=== PATIENT | female | born 1980 | race Caucasian/White ===

== ENCOUNTER 2019-05-07 07:23 | Emergency (ER) | payer OTHER ==
[~2019-05-07] VITALS: Ht 167.7 cm; Wt 134.5 kg
[~2019-05-07 07:23] MED LIST: ALBU17AE23 IH; BENZ200C25 PO; CPR500T PO; CYCL10TA9 PO; CYCL5TAB PO; DOXY100C2 PO; HYDR1CAP2 PO; HYDR1TAB8 OP; IBP800T PO; NAPR-243 PO; ONDAN4ODT PO; RT-COMBINH IH; SULF1TAB35 PO; TMSL.4C PO; TRM50T PO
--- NOTE | 2019-05-07 08:05 | ED Integumentary General ---
General Chief Complaint: Skin/Wound Problems Stated Complaint: SPILT HOT LIQUID ON CHEST Nursing Triage Note: Pt reports spilling 400 degree water down front and on L arm at work. Pt reports more pain in chest and that chest feels "on fire." Source: patient Exam Limitations: no limitations (ROSARIO NEAL MED STUDENT) History of Present Illness Date Seen by Provider: May 07, 2019 Time Seen by Provider: 07:46 Initial Comments Pt presents to ED with CC of burn. 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 She complains of 7/10 burning pain in her L arm, just proximal to the hand, and L side of her chest. Thinks the burn on her chest has already blistered and popped but is not certain. Timing/Duration: just prior to arrival Severity: moderate Location: torso, extremities (L arm ) Possible Cause: other (hot liquid ) Associated Symptoms: blisters (ROSARIO NEAL MED STUDENT) Allergies and Home Medications Allergies Coded Allergies: No Known Drug Allergies (Unverified , 05/07/19) Patient Home Medication List Home Medication List Reviewed: Yes (ROSARIO NEAL MED STUDENT) Home Medication List Reviewed: Yes (NACHO RAMOS MD) Review of Systems Review of Systems Constitutional: No diaphoresis, No fever Respiratory: No cough, No short of breath Cardiovascular: No chest pain, No palpitations Gastrointestinal: No abdominal pain, No nausea Skin: see HPI, change in color, lesions (ROSARIO NEAL MED STUDENT) Respiratory: no symptoms reported Cardiovascular: no symptoms reported Skin: see HPI, change in color, lesions (NACOH RAMOS MD) Past Uqblryh-Bvikro-Npsjux Hx Past Med/Social Hx: Reviewed Nursing Past Med/Soc Hx (NACHO RAMOS MD) Patient Social History Recent Foreign Travel: No Contact w/Someone Who Travel: No Recent Infectious Disease Expo: No (ROSARIO NEAL MED STUDENT) Family Medical History Reviewed Nursing Family Hx (NACHO RAMOS MD) Physical Exam Vital Signs Vital Signs - First Documented 05/07/19 07:50 Temp 36.8 Pulse 80 Resp 14 B/P (MAP) 134/57 (82) Pulse Ox 95 O2 Delivery Room Air (NACHO RAMOS MD) Vital Signs Capillary Refill : Less Than 3 Seconds (ROSARIO NEAL,MED STUDENT) General Appearance: WD/WN, no apparent distress Cardiovascular: regular rate, rhythm, no edema, no gallop, no murmur Respiratory: chest non-tender, lungs clear, normal breath sounds, no respiratory distress, no accessory muscle use Skin: normal color, warm/dry Skin Problem Character: blanching, erythema, tenderness, warm, other (3cm of blanching erythema on flexor surface of l arm, just proximal to hand. 6cm linear erythematous burn with surrounding 1cm margin of pallor on superior aspect of L breast , quarter sized erythematous superficial burn on L anterior chest wall ) (ROSARIO NEAL,MED STUDENT) General Appearance: WD/WN, no apparent distress Cardiovascular: regular rate, rhythm, no murmur Respiratory: lungs clear, normal breath sounds Neurologic/Psychiatric: alert, oriented x 3 Skin: warm/dry Skin Problem Character: other (3cm of blanching erythema on flexor surface of l arm, just proximal to hand. 1x6cm linear erythematous burn with surrounding 1cm margin of pallor on superior aspect of L breast , quarter sized erythematous superficial burn on L anterior chest wall ) (NACHO RAMOS MD) Progress/Results/Core Measures Results/Orders My Orders Orders - NACHO RAMOS MD Hydrocodone/Apap 7.5/325 Tab (Lortab 7. (05/07/19 08:07) Ketorolac Injection (Toradol Injection) (05/07/19 08:07) Bacitracin Ointment (Bacitracin Ointment (05/07/19 09:00) (NACHO RAMOS MD) Vital Signs/I&O 05/07/19 07:50 Temp 36.8 Pulse 80 Resp 14 B/P (MAP) 134/57 (82) Pulse Ox 95 O2 Delivery Room Air (NACHO RAMOS MD) Blood Pressure Mean: 82 Progress Progress Note : Time: 08:12 Progress Note Seen and evaluated. Covering smaller ocampo on arm and anterior chest wall with dry bandage, will provide pt with bandages she can change at home and instructions for application. Applying bacitracin to burn on L breast covered with dry dressing. Instructed pt to return if any ocampo show signs of infection including increasing erythema, induration, heat or if ocampo do not get better in a few days. Will cover pain with 7.5mg hydrocodone and 30mg toradol injection today with instructions to take tylenol and ibuprofen as needed. (ROSARIO NEAL MED STUDENT) Progress Note : Progress Note I have seen and evaluated the patient and agree with above except as indicated. Have directed the plan of care. Patient is here with complaints of small burn to the left arm and left upper chest. These are both superficial although there is question of blistering on the breast. We will apply bacitracin to the wound on the breast. She did receive pain control with Toradol 60 mg IM and hydrocodone 7.5/325 one tab by mouth. Overall doing better. Discharged home with return precautions. Patient verbalize understanding instructions and agreement with plan. (NACHO RAMOS MD) Departure Impression Primary Impression: Partial thickness burn of breast Qualified Codes: T21.21XA - Burn of second degree of chest wall, initial encounter Additional Impression: Partial thickness burn of forehead Qualified Codes: T20.26XA - Burn of second degree of forehead and cheek, initial encounter Disposition: 01 HOME, SELF-CARE Condition: Stable Departure-Patient Inst. Decision time for Depature: 08:34 (NACHO RAMOS MD) Referrals: EDILIA LUNA DO (PCP) Primary Care Physician Patient Instructions: Skin Ocampo (DC) Add. Discharge Instructions: All discharge instructions reviewed with patient and/or family. Voiced understanding. Use bacitracin ointment over wound on breast once or twice daily and then cover with dressing for the next several days and then as needed. You may use dry dressing over the superficial burn on the left wrist as needed. Follow-up with your DrKirstin in a few days for recheck. Return for worse pain, swelling, increasing redness, foul-smelling drainage or other concerns as needed. You may take ibuprofen 600 mg every 8 hours as needed for pain. You may also take Tylenol/acetaminophen 1000 mg every 8 hours as needed for pain. Work/School Note: Work Release Form Date Seen in the Emergency Department: May 07, 2019 Return to Work: May 08, 2019 Restrictions: No Restrictions ROSARIO NEAL MED STUDENT May 07, 2019 08:05 NACHO RAMSO MD May 07, 2019 08:33
[2019-05-07] MEDS ORDERED: KETOROLAC 60 MG/2 ML VIAL IM STA (08:07)
[2019-05-07] MEDS ORDERED: HYDROcodone/APAP 7.5 MG/325 MG (LORTAB, LORCET PLUS) TABLET PO STA (08:07)
[2019-05-07 08:38] VITALS: BP 134/57
[2019-05-07] MEDS ORDERED: BACITRACIN OINTMENT 28 GM TUBE TOP SCH (09:00)
[2019-05-08] MEDS ORDERED: MELO15TA14 PO (11:04)
[2019-05-08] MEDS ORDERED: SILV20CR14 TP (11:04)
== END 2019-05-07 08:38 | disposition home or self-care (01) ==
LOC: EDUNIT# 07:23 → ER 07:25 → MERGE 07:25 → ER 08:38
DX: T21.11XA Burn of first degree of chest wall, initial encounter (principal); T22.132A Burn of first degree of left upper arm, initial encounter; T20.16XA Burn of first degree of forehead and cheek, initial encounter; T31.0 Burns involving less than 10% of body surface; X12.XXXA Contact with other hot fluids, initial encounter; Y92.59 Other trade areas as the place of occurrence of the external cause
CPT/HCPCS: 96372; 99284

== ENCOUNTER 2019-05-08 10:24 | Emergency (ER) | payer OTHER ==
[~2019-05-08] VITALS: Ht 167 cm; Wt 127.0 kg
[2019-05-08] MEDS ORDERED: SILV20CR14 TP (11:04)
[2019-05-08] MEDS ORDERED: MELO15TA14 PO (11:04)
--- NOTE | 2019-05-08 11:05 | ED Integumentary General ---
General Chief Complaint: General Problems/Pain Stated Complaint: SKIN WOUND/BURN Nursing Triage Note: WAS SEEN HERE YESTERDAY AFTER SPILLING A HOT LIQUID ON LEFT BREAST. STATES HER PAIN IS WORSE. TAKING BC POWDER WHICH IS NOT HELPING. LAST DOSE WAS LAST NIGHT. Allergies and Home Medications Allergies Coded Allergies: No Known Drug Allergies (Unverified , 07/11/12) Home Medications Meloxicam 15 Mg Tablet, 15 MG PO DAILY Prescribed by: JACKELINE DUMONT on 05/08/19 1104 Silver Sulfadiazine 20 Gm Cream..g., 0 TP BID Prescribed by: JACKELINE DUMONT on 05/08/19 1104 Sulfamethoxazole/Trimethoprim 1 Each Tablet, 1 EACH PO BID Prescribed by: KELLY AYALA on 12/18/14 1538 Past Xtpgida-Rxqrfe-Yxcbbp Hx Patient Social History Alcohol Use: Denies Use Recreational Drug Use: No Smoking Status: Current Everyday Smoker Recent Foreign Travel: No Contact w/Someone Who Travel: No Recent Infectious Disease Expo: No Seasonal Allergies Seasonal Allergies: No Past Medical History Surgeries: Yes Section Respiratory: No Cardiac: No Neurological: No Reproductive Disorders: No Sexually Transmitted Disease: No HIV/AIDS: No Kidney Stones Gastrointestinal: No Musculoskeletal: No Endocrine: No Cancer: No Psychosocial: Yes Depression Integumentary: Yes (TINEA VERSICOLOR) Blood Disorders: No Adverse Reaction/Blood Tranf: No Physical Exam Vital Signs Vital Signs - First Documented 05/08/19 10:25 Temp 37.0 Pulse 79 Resp 16 B/P (MAP) 140/90 (107) Pulse Ox 100 O2 Delivery Room Air Capillary Refill : Less Than 3 Seconds Progress/Results/Core Measures Results/Orders Vital Signs/I&O 05/08/19 05/08/19 10:25 11:12 Temp 37.0 37.0 Pulse 79 79 Resp 16 16 B/P (MAP) 140/90 (107) 140/90 (107) Pulse Ox 100 100 O2 Delivery Room Air Blood Pressure Mean: 107 Departure Impression Primary Impression: FIRST AND SECOND DEGREE BERMAN TO LEFT BREAST Disposition: 01 HOME, SELF-CARE Condition: Stable Departure-Patient Inst. Referrals: EDILIA LUNA DO (PCP) Primary Care Physician Patient Instructions: Skin Berman (DC) Add. Discharge Instructions: CLEAN AREA TWICE A DAY WITH ANTIBACTERIAL SOAP AND WATER, APPLY ANTIBIOTIC OINTMENT AND FRESH DRESSING TWICE A DAY TYLENOL NEEDED FOR PAIN FOLLOW UP WITH OCCUPATIONAL HEALTH TODAY FOR FURTHER CARE All discharge instructions reviewed with patient and/or family. Voiced understanding. Scripts Silver Sulfadiazine (Silvadene) 20 Gm Cream..g. 0 TP BID, #1 TUBE Prov: JACKELINE DUMONT DO 05/08/19 Meloxicam (Mobic) 15 Mg Tablet 15 MG PO DAILY, #10 TAB Prov: JACKELINE DUMONT DO 05/08/19 Work/School Note: Work Release Form Date Seen in the Emergency Department: May 08, 2019 Restrictions: Need Release from Doctor JACKELINE DUMONT DO May 08, 2019 11:05
[2019-05-08 11:12] VITALS: BP 140/90
== END 2019-05-08 11:12 | disposition home or self-care (01) ==
LOC: EDUNIT# 10:24 → ER 10:25
DX: T21.21XA Burn of second degree of chest wall, initial encounter (principal); T31.0 Burns involving less than 10% of body surface; F32.9 Major depressive disorder, single episode, unspecified; F17.200 Nicotine dependence, unspecified, uncomplicated; Z87.442 Personal history of urinary calculi; X12.XXXA Contact with other hot fluids, initial encounter
CPT/HCPCS: 99281

== ENCOUNTER → 2021-02-24 | Outpatient (CLI) | payer OTHER ==
[~2021-02-24] MED LIST changes: +ACET325C7 PO; +CALC-870 PO; +IBUP-2185 PO; +INSU100I29 SQ; +MELO15TA14 PO; +METF-397 PO; +SILV20CR14 TP; -SULF1TAB35 PO; +SULF1TAB38 PO
--- NOTE | 2021-02-24 11:20 | Diagnostic Imaging Report ---
INDICATION: Back pain COMPARISON: 09/17/2013 FINDINGS: Three views of the lumbar column demonstrate normal alignment. There is no subluxation or fracture. Worsening degenerative disc disease is seen at L5-S1 with endplate osteophytosis and disc space narrowing. Mild facet joint arthropathy is seen throughout. No bony bridging, fracture, dislocation or osseous lesion is seen. The SI joints are normal. IMPRESSION: Worsening degenerative disc disease at L5-S1. Dictated by: Dictated on workstation # [id number]
--- NOTE | 2021-02-24 11:22 | Diagnostic Imaging Report ---
EXAM: Bilateral hands at 8:57 AM INDICATION: Hand pain TECHNIQUE: AP and lateral views of both hands were obtained. COMPARISON: There are no prior studies available for comparison. FINDINGS: There is no fracture, dislocation or acute bony abnormality evident. The osseous structures seem well mineralized and there are no significant arthritic changes involving the hands or wrists. The soft tissues are unremarkable. IMPRESSION: There is no evidence for an acute bony abnormality of either hand. Dictated by: Dictated on workstation # [id number]
== END ==
LOC: RAD 08:31
PROVIDERS: ATTEND Family Medicine
DX: Z02.71 Encounter for disability determination (principal); M51.37 Other intervertebral disc degeneration, lumbosacral region
CPT/HCPCS: 72100